=== PATIENT | female | born 1990 | race Caucasian/White ===

== ENCOUNTER 2017-11-26 20:17 | Emergency (ER) ==
[2017-11-26 20:24] VITALS: BP 109/68; TEMP 99.2; BMI 21.7
--- NOTE | 2017-11-26 21:15 | ED.PDOC ---
General ED Provider: Dr. COMFORT POLK Chief Complaint: Rash Stated Complaint: Rash on right foot for two weeks. Time Seen by Physician: 21:15 Mode of Arrival: Walk-In Information Source: Patient Exam Limitations: No limitations Nursing and Triage Documentation Reviewed and Agree: Yes Does patient meet sepsis criteria?: No System Inflammatory Response Syndrome: Not Applicable Sepsis Protocol: For patient's 13 years and over: Temp is 96.8 and below OR 101 and greater Pulse >90 BPM Resp >20/minute Acutely Altered Mental Status Are patient's symptoms suggestive of a new infection, such as: -Pneumonia -Skin, Soft Tissue -Endocarditis -UTI -Bone, Joint Infection -Implantable Device -Acute Abdominal Infection -Wound Infection -Meningitis -Blood Stream Catheter Infection -Unknown Review of Systems - Review Of Systems Constitutional: Reports: No symptoms Eyes: Reports: No symptoms Ears, Nose, Mouth, Throat: Reports: No symptoms Respiratory: Reports: No symptoms Cardiac: Reports: No symptoms GI: Reports: No symptoms : Reports: No symptoms Musculoskeletal: Reports: No symptoms Skin: Reports: Rash (right foot ) Neurological: Reports: Anxiety Endocrine: Reports: No symptoms Hematologic/Lymphatic: Reports: No symptoms All Other Systems: Reviewed and Negative Past Medical History - Past Medical History Endocrine: Reports: Hypothyroid Cardiovascular: Reports: None Respiratory: Reports: Asthma Hematological: Reports: None Gastrointestinal: Reports: Other (IBS) Genitourinary: Reports: UTI, Kidney stones Neuro/Psych: Reports: Anxiety, Depression, Bipolar Disorder Musculoskeletal: Reports: None Cancer: Reports: Other (cervical ) Last Menstrual Period: 10/30/17 - Surgical History General Surgical History: Reports: (x2 ), Other (3/4 of cercix removed in 2014 due to cancer ) - Family History Family History: Reports: Unknown - Social History Smoking Status: Current every day smoker, Heavy tobacco smoker Hx Substance Use: Yes (MARIJUANA) Alcohol Screening: Occasionally - Immunizations Tetanus Shot up to Date: Yes Physical Exam - Physical Exam Appearance: Well-appearing, No pain distress, Well-nourished Eyes: SKYLER, EOMI, Conjunctiva clear ENT: Ears normal, Nose normal, Oropharynx normal Respiratory: Airway patent, Breath sounds clear, Breath sounds equal, Respirations nonlabored Cardiovascular: RRR, Pulses normal, No rub, No murmur GI/: Soft, Nontender, No masses, Bowel sounds normal, No Organomegaly Musculoskeletal: Normal strength, ROM intact, No edema, No calf tenderness ( left foot pain with weight bearing due to blister on the ball of foot.) Skin: Warm, Dry, Normal color Neurological: Sensation intact, Motor intact, Cranial nerves intact, Alert, Oriented Psychiatric: Anxious Critical Care Note - Critical Care Note Total Time (mins): 0 Course - Course Orders, Labs, Meds: Orders Category Date Time Status Fluconazole [Diflucan] MEDS 11/26/17 21:20 Discontinued 150 mg PO ONCE STA Fluconazole [Diflucan] MEDS 11/26/17 21:24 Discontinued 200 mg .ROUTE .STK-MED ONE Prednisone MEDS 11/26/17 21:20 Discontinued 20 mg PO ONCE STA Medications Discontinued Medications Generic Name Dose Route Start Last Admin Trade Name [place] PRN Reason Stop Dose Admin Fluconazole 150 mg 11/26/17 21:20 11/26/17 21:26 Diflucan PO 11/26/17 21:21 150 mg ONCE STA Administration Prednisone 20 mg 11/26/17 21:20 11/26/17 21:25 Prednisone PO 11/26/17 21:21 20 mg ONCE STA Administration Vital Signs: Temp Pulse Resp BP Pulse Ox 11/26/17 20:18 99.2 F 98 H 18 109/68 96 Departure - Departure Time of Disposition: 21:20 Disposition: HOME SELF-CARE Discharge Problem: Superficial mycosis, Athlete's foot on right Instructions: Athlete's Foot (ED) Condition: Stable Pt referred to PMD for follow-up: Yes IPMP verified?: No Additional Instructions: Take medications as prescribed follow up with PCP in 3 days Prescriptions: Prednisone 20 mg PO DAILYWM #5 tablet Tolnaftate [Tinactin] 108 gm TP BID #108 powder Allergies/Adverse Reactions: Allergies adhesive tape Adverse Reaction (Mild, Verified 11/26/17 20:24) Rash amoxicillin Adverse Reaction (Mild, Verified 11/26/17 20:24) Hives latex Adverse Reaction (Mild, Verified 11/26/17 20:24) Rash Penicillins Adverse Reaction (Mild, Verified 11/26/17 20:24) Rash Home Medications: Ambulatory Orders Prednisone 20 mg PO DAILYWM #5 tablet 11/26/17 Tolnaftate [Tinactin] 108 gm TP BID #108 powder 11/26/17 Disposition Discussed With: Patient
[2017-11-26] MEDS ORDERED: PREDNISONE PO STA (21:20)
[2017-11-26] MEDS ORDERED: DIFLUCAN PO STA (21:20)
[2017-11-26] MEDS ORDERED: DIFLUCAN ONE (21:24)
== END 2017-11-26 21:35 | disposition home or self-care (01) ==
LOC: ED 20:17
DX: B35.3 Tinea pedis (principal); F17.210 Nicotine dependence, cigarettes, uncomplicated
CPT/HCPCS: 99282